=== PATIENT | male | born 1985 | race Caucasian/White ===

== ENCOUNTER 2020-02-27 20:48 | Emergency (ER) | payer OTHER ==
[2020-02-27] MEDS ORDERED: CEPHALEXIN 500 MG CAP As Ordered ONE (22:08)
[2020-02-27] MEDS ORDERED: CEPHALEXIN 500 MG CAP ONE (22:08)
== END 2020-02-27 22:15 | disposition home or self-care (01) ==
LOC: M ED 20:48
DX: S60.450A Superficial foreign body of right index finger, initial encounter (principal); W45.8XXA Other foreign body or object entering through skin, initial encounter; Y93.89 Activity, other specified; Y92.9 Unspecified place or not applicable